=== PATIENT | male | born 1965 | race Caucasian/White ===

== ENCOUNTER → 2017-01-30 | Outpatient (CLI) | payer BC | LOC: KOH-I 15:56 | DX: M54.41 Lumbago with sciatica, right side (principal); M47.816 Spondylosis without myelopathy or radiculopathy, lumbar region | CPT/HCPCS: 72110 ==

== ENCOUNTER → 2021-02-15 | Outpatient (CLI) | payer BC | LOC: US 09:44 | DX: R10.11 Right upper quadrant pain (principal); K76.0 Fatty (change of) liver, not elsewhere classified | CPT/HCPCS: 76705 ==

== ENCOUNTER → 2021-04-23 | Outpatient (CLI) | payer BC | LOC: KOH-I 16:26 | DX: M54.5 Low back pain (principal); M43.17 Spondylolisthesis, lumbosacral region | CPT/HCPCS: 72110; 73502 ==

== ENCOUNTER 2022-02-13 12:54 | Emergency (ER) | payer BC ==
[2022-02-13 14:11] LABS: HEMOGLOBIN 14.8 gm/dl (14.0-17.5); RED BLOOD COUNT 5.47 M/UL (4.20-5.50); WHITE BLOOD COUNT 5.2 K/UL (4.5-11.0)
[2022-02-13 14:35] LABS: BUN/CREATININE RATIO 12 (0-10)
[2022-02-13] MEDS ORDERED: ZOFRAN 4 MG TAB4 MG PO (16:38)
[2022-02-13] MEDS ORDERED: BENTYL 20MG TAB20 MG PO (16:38)
== END 2022-02-13 16:47 | disposition home or self-care (01) ==
LOC: ER1 12:54
PROVIDERS: Physician Assistant
DX: K52.9 Noninfective gastroenteritis and colitis, unspecified (principal); I10 Essential (primary) hypertension; E78.5 Hyperlipidemia, unspecified; E11.9 Type 2 diabetes mellitus without complications; J44.9 Chronic obstructive pulmonary disease, unspecified
CPT/HCPCS: 80053; 82150; 82550; 82553; 83690; 84484; 85025; 93005; 96374; 99284; J2405; J7030; Q9967